=== PATIENT | female | born 1990 | race Caucasian/White ===

== ENCOUNTER 2018-04-07 17:36 | Emergency (ER) | payer OTHER ==
--- NOTE | 2018-04-07 20:08 | RAD ---
CHEST ONE VIEW: HISTORY: A 28-year-old female with a history of chest injury following a trip and fall. The patient passed ou t. Possible aspiration. FINDINGS: Heart size is normal. Lungs are clear. No pneumonia, edema, or pleural effusion. IMPRESSION: No active intrathoracic disease. POS: [facility]
[2018-04-07 20:10] LABS: #Eosinphils 0.2 thou/uL (0.0-0.7); #Monocytes 0.5 thou/uL (0.11-0.59); #Neutrophils 4.6 thou/uL (1.40-6.50); %Basophils 0.6 % (0.0-1.0); %Lymphocytes 26.8 % (21.0-51.0); %Monocytes 7.2 % (0.0-10.0); %Neutrophils 62.4 % (42.0-75.0); Hemoglobin 13.7 g/dL (12.0-16.0); Mean Corpuscular HGB CONC 32.7 g/dL (32.0-36.0); Mean Corpuscular Hemoglobin 31.4 pg (27.0-31.0); Mean Corpuscular Volume 95.8 fL (78.0-98.0); Mean Platelet Volume 7.9 fL (7.4-10.4); Platelet Count 224 thou/uL (130-400); RBC Distribution Width 11.2 % (11.5-14.5); Red Blood Cell (RBC) Count 4.37 mill/uL (4.20-5.40); White Blood Cell (WBC) Count 7.4 thou/uL (4.8-10.8)
[2018-04-07 20:37] LABS: ALT (SGPT) 11 U/L (8-55); AST (SGOT) 15 U/L (5-34); Albumin 4.1 g/dL (3.5-5.0); Alkaline Phosphatase 98 U/L (40-150); Anion Gap 11 mmol/L (10-20); BUN (Urea Nitrogen) 10 mg/dL (7.0-18.7); Bilirubin, Total 0.3 mg/dL (0.2-1.2); Calc. Creatinine Clearance 0 mL/min (70-130); Calcium 9.4 mg/dL (7.8-10.44); Carbon Dioxide 25 mmol/L (22-29); Chloride 107 mmol/L (98-107); Estimated GFR-MDRD 82; Globulin 3.2 g/dL (2.4-3.5); Glucose 85 mg/dL (70-105); Potassium 3.9 mmol/L (3.5-5.1); Protein, Total 7.3 g/dL (6.0-8.3); Sodium 139 mmol/L (136-145)
== END 2018-04-07 22:10 | disposition home or self-care (01) ==
LOC: ERS 17:36
DX: T17.990A Other foreign object in respiratory tract, part unspecified in causing asphyxiation, initial encounter (principal); W01.190A Fall on same level from slipping, tripping and stumbling with subsequent striking against furniture, initial encounter
CPT/HCPCS: 36415; 71045; 80053; 85025

== ENCOUNTER 2020-05-13 17:18 | Inpatient (IN) | payer OTHER ==
[~2020-05-13 17:18] MED LIST: Bupivacaine 0.25% HCL 30 ML VIAL ONE; ePHEDrine 50 MG/ML VIAL ONE
[2020-05-13 17:50] VITALS: BMI 35.2
[2020-05-13] MEDS ORDERED: hydrALAZINE 20 MG/ML VIAL SLOW IVP PRN ×2 (18:06→20:01)
[2020-05-13] MEDS: Lactated Ringer's 1,000 ML IV SCH ×2 (19:55→21:55)
[2020-05-13] MEDS ORDERED: Butorphanol Tartrate 1 MG/ML VIAL ONE (20:01)
[2020-05-13] MEDS ORDERED: Butorphanol Tartrate 1 MG/ML VIAL SLOW IVP PRN (20:01)
[2020-05-13] MEDS ORDERED: Lidocaine 1% (PF) 30 ML VIAL SC PRN (20:01)
[2020-05-13] MEDS ORDERED: Docusate 100 MG CAP PO PRN (20:01)
[2020-05-13] MEDS ORDERED: HYDROcodone/Acetaminophen 5/325 mg Tablet PO PRN ×2 (20:01)
[2020-05-13] MEDS ORDERED: Ibuprofen 800 MG TAB PO PRN (20:01)
[2020-05-13] MEDS ORDERED: Carboprost 250 MCG/ML AMP IM PRN (20:01)
[2020-05-13] MEDS ORDERED: Promethazine HCl 25 MG/ML VIAL IM PRN ×2 (20:01→23:15)
[2020-05-13] MEDS ORDERED: Acetaminophen 500 MG TAB PO PRN (20:01)
[2020-05-13] MEDS ORDERED: Diphenoxylate HCl/Atropine Tablet PO PRN ×2 (20:01)
[2020-05-13] MEDS ORDERED: Zolpidem Tartrate 5 MG TAB PO PRN (20:01)
[2020-05-13] MEDS ORDERED: Methylergonovine 0.2 MG/ML VIAL IM PRN (20:01)
[2020-05-13] MEDS ORDERED: Penicillin G Potassium 5 MILL.UNITS in Sodium Chloride 0.9% 100 ML IVPB SCH (20:15)
[2020-05-13] MEDS ORDERED: NS w/ Oxytocin 30 units 500 ML IVPB PRN (20:18)
[2020-05-13] MEDS ORDERED: NS w/ Oxytocin 30 units 500 ML IVPB SCH ×2 (20:30→20:45)
[2020-05-13 20:58] LABS: Amnisure Test RUPTURE DETECTED (No Rupture)
[2020-05-13 20:59] LABS: Amnisure Internal Control QC ACCEPTABLE (ACCEPTABLE)
[2020-05-13] MEDS: Ondansetron PF 4 MG/2 ML Vial IVP PRN (21:11)
[2020-05-13 21:17] LABS: Hemoglobin 13.7 g/dL (12.0-16.0); Mean Corpuscular HGB CONC 32.5 g/dL (32.0-36.0); Mean Corpuscular Hemoglobin 31.5 pg (27.0-31.0); Mean Corpuscular Volume 96.8 fL (78.0-98.0); Mean Platelet Volume 9.2 fL (7.4-10.4); Platelet Count 188 thou/uL (130-400); RBC Distribution Width 12.5 % (11.5-14.5); Red Blood Cell (RBC) Count 4.35 mill/uL (4.20-5.40); White Blood Cell (WBC) Count 11.7 thou/uL (4.8-10.8)
[2020-05-13] MEDS ORDERED: Fentanyl 4 mcg/Bup 0.1% Cadd 100 ML ONE (21:28)
[2020-05-13 21:53] LABS: Syphilis Antibody Nonreactive (Nonreactive); Syphilis Antibody Index 0.04 S/CO (<1.00 Non-Reactive)
[2020-05-13] MEDS: ePHEDrine 50 MG/ML VIAL SLOW IVP PRN (22:58)
[2020-05-13] MEDS ORDERED: Naloxone HCl 0.4 mg/ml Vial IVP PRN ×2 (23:15)
[2020-05-13] MEDS ORDERED: Ondansetron PF 4 MG/2 ML Vial IVP PRN (23:15)
[2020-05-13] MEDS ORDERED: Fentanyl 4 mcg/Bupivacaine 0.1% Cassette 100 ML EPIDURAL SCH (23:15)
[2020-05-13] MEDS ORDERED: Lactated Ringer's 500 ML IV PRN (23:15)
[2020-05-13] MEDS ORDERED: diphenhydrAMINE 50 MG/ML VIAL IVP PRN (23:15)
[2020-05-13] MEDS ORDERED: Communication Order-Pharmacy FS SCH (23:15)
[2020-05-13] MEDS ORDERED: Acetaminophen 325 MG TAB PO PRN (23:15)
[2020-05-13] MEDS ORDERED: PHENYLEPHRINE-NS 100 MCG/ML 10 ML SYRINGE ONE (23:23)
[2020-05-13] MEDS ORDERED: Dexamethasone 4 mg/ml Vial ONE (23:23)
[2020-05-13] MEDS ORDERED: Penicillin G 2.5 MILL.units 2.5 MILL.UNITS in Premix Bag 1 BAG IVPB SCH (23:59)
[2020-05-14] MEDS: Lactated Ringer's 1,000 ML IV SCH ×2 (00:31→11:51)
[2020-05-14] MEDS: Vancomycin 1 GM in Premix Bag 1 BAG IVPB SCH ×2 (00:32→11:51)
[2020-05-14 00:59] LABS: HBSAg Index 0.19 S/CO (0-0.99); Hep B Surf Ag Non-Reactive S/CO (NonReactive)
[2020-05-14] MEDS ORDERED: Fentanyl 4 mcg/Bup 0.1% Cadd 100 ML ONE ×2 (06:30→14:48)
[2020-05-14] MEDS: Ondansetron PF 4 MG/2 ML Vial IVP PRN (09:17)
[2020-05-14] MEDS: ePHEDrine 50 MG/ML VIAL SLOW IVP PRN (14:24)
[2020-05-14] MEDS ORDERED: Misoprostol 200 MCG TAB ONE (15:15)
[2020-05-14] MEDS ORDERED: Ondansetron PF 4 MG/2 ML Vial IVP PRN (16:49)
[2020-05-14] MEDS ORDERED: Misoprostol 200 MCG TAB VAG PRN (16:49)
[2020-05-14] MEDS ORDERED: Bisacodyl 10 MG SUPP PR PRN (16:49)
[2020-05-14] MEDS ORDERED: hydrALAZINE 20 MG/ML VIAL SLOW IVP PRN (16:49)
[2020-05-14] MEDS ORDERED: Benzocaine-Menthol 82.5 ML CAN TOP PRN (16:49)
[2020-05-14] MEDS ORDERED: Milk Of Magnesia 30 ML UDCUP PO PRN (16:49)
[2020-05-14] MEDS ORDERED: Promethazine HCl 25 MG/ML VIAL IM PRN (16:49)
[2020-05-14] MEDS ORDERED: Preparation H Ointment 28 GM TUBE PR PRN (16:49)
[2020-05-14] MEDS ORDERED: Zolpidem Tartrate 5 MG TAB PO PRN (16:49)
[2020-05-14] MEDS ORDERED: diphenhydrAMINE 25 MG CAP PO PRN (16:49)
[2020-05-14] MEDS ORDERED: Methylergonovine 0.2 MG/ML VIAL IM PRN (16:49)
[2020-05-14] MEDS ORDERED: NS / Oxytocin 40 units/1000ml 1,000 ML IV SCH (16:49)
[2020-05-14] MEDS ORDERED: HYDROcodone/Acetaminophen 5/325 mg Tablet PO PRN ×2 (16:49)
[2020-05-14] MEDS ORDERED: Lanolin Ointment 7 GM TUBE TOP PRN (16:49)
[2020-05-14] MEDS: Ferrous Sulfate 325 MG TAB PO SCH (18:14)
[2020-05-14] MEDS: Ibuprofen 800 MG TAB PO SCH (18:38)
[2020-05-14] MEDS: Docusate Calcium (SURFAK) 240 MG CAP PO SCH (20:38)
[2020-05-15] MEDS: Ibuprofen 800 MG TAB PO SCH ×3 (03:10→20:45)
[2020-05-15 07:04] LABS: Hemoglobin 11.2 g/dL (12.0-16.0); Mean Corpuscular HGB CONC 33.4 g/dL (32.0-36.0); Mean Corpuscular Hemoglobin 32.4 pg (27.0-31.0); Mean Corpuscular Volume 97.1 fL (78.0-98.0); Mean Platelet Volume 8.5 fL (7.4-10.4); Platelet Count 145 thou/uL (130-400); RBC Distribution Width 12.6 % (11.5-14.5); Red Blood Cell (RBC) Count 3.45 mill/uL (4.20-5.40); White Blood Cell (WBC) Count 14.4 thou/uL (4.8-10.8)
[2020-05-15] MEDS: Ferrous Sulfate 325 MG TAB PO SCH ×2 (09:07→18:01)
[2020-05-15] MEDS: Prenatal Vitamin 1 TAB PO SCH (09:34)
[2020-05-15] MEDS: Acetaminophen 500 MG TAB PO PRN (09:34)
[2020-05-15] MEDS: Docusate Calcium (SURFAK) 240 MG CAP PO SCH ×2 (09:34→20:45)
[2020-05-15] MEDS ORDERED: Varicella virus, LIVE 0.5 ML VIAL SC ONE (16:49)
[2020-05-15] MEDS ORDERED: Measles/Mumps/Rubella 10 MCG/0.5 ML VIAL SC ONE (16:49)
[2020-05-15] MEDS ORDERED: Adacel (T-DAP) 0.5 ML SYRINGE IM ONE (16:49)
[2020-05-15] MEDS ORDERED: Boostrix 0.5 ML (Tdap) VIAL IM ONE (20:00)
[2020-05-16] MEDS: Acetaminophen 500 MG TAB PO PRN (03:33)
[2020-05-16] MEDS: Ibuprofen 800 MG TAB PO SCH (05:19)
[2020-05-16] MEDS: Ferrous Sulfate 325 MG TAB PO SCH (07:39)
[2020-05-16 08:47] VITALS: BP 115/66; TEMP 98.6
[2020-05-16] MEDS: Prenatal Vitamin 1 TAB PO SCH (09:49)
[2020-05-16] MEDS: Docusate Calcium (SURFAK) 240 MG CAP PO SCH (09:49)
== END 2020-05-16 13:00 | disposition home or self-care (01) | DRG 807 ==
LOC: L&D/OP 17:18 → L&D 20:01 → 3SW 05-14 18:17
PROVIDERS: ADMIT Obstetrics & Gynecology; ATTEND Obstetrics & Gynecology
PROC: 10E0XZZ Delivery of Products of Conception, External Approach (ICD-10-PCS; principal; 2020-05-14)
DX: O34.219 Maternal care for unspecified type scar from previous cesarean delivery (principal); Z37.0 Single live birth; O69.81X0 Labor and delivery complicated by cord around neck, without compression, not applicable or unspecified; Z3A.38 38 weeks gestation of pregnancy
CPT/HCPCS: 36415; 51702; 84112; 85027; 86780; 86850; 86900; 86901; 87340; 90715; 99285; J0595; J1100; J2405; J2540; J2590; J3370; J3490; S0020

== ENCOUNTER 2024-04-19 17:50 | Emergency (ER) | payer BC, SELFPAY ==
[2024-04-19] MEDS ORDERED: methylPREDNISolone Sod Succ/PF 125 MG/2 ML VIAL ONE (18:09)
[2024-04-19] MEDS ORDERED: Ipratropium/Albuterol 3 ML NEB ONE (18:09)
[2024-04-19 18:14] LABS: #Basophils 0.07 10x3/uL (0.0-0.2); %Basophils 1.1 % (0.0-1.0); %Eosinophils 9.6 % (0.0-10.0); %Lymphocytes 22.6 % (21.0-51.0); %Monocytes 8.5 % (0.0-10.0); Hematocrit 40.4 % (36.0-47.0); Hemoglobin 12.7 g/dL (12.0-16.0); Mean Corpuscular HGB CONC 31.4 g/dL (32.0-36.0); Mean Corpuscular Hemoglobin 26.7 pg (27.0-31.0); Mean Corpuscular Volume 85.1 fL (78.0-98.0); Mean Platelet Volume 9.8 fL (7.4-10.4); Platelet Count 319 10x3/uL (130-400); RBC Distribution Width 13.7 % (11.5-14.5); Red Blood Cell (RBC) Count 4.75 mill/uL (4.20-5.40)
[2024-04-19 18:30] LABS: Anion Gap 15 mmol/L (10-20); BUN (Urea Nitrogen) 15 mg/dL (7.0-18.7); Calc. Creatinine Clearance 0 mL/min (70-130); Calcium 9.2 mg/dL (7.8-10.44); Carbon Dioxide 21 mmol/L (22-29); Chloride 110 mmol/L (98-107); Estimated GFR 66; Glucose 88 mg/dL (70-105); Potassium 4.2 mmol/L (3.5-5.1); Sodium 142 mmol/L (136-145)
[2024-04-19 18:31] LABS: ALT (SGPT) 12 U/L (8-55); AST (SGOT) 16 U/L (5-34); Albumin 4.2 g/dL (3.5-5.0); Alkaline Phosphatase 91 U/L (40-110); Bilirubin, Total 0.3 mg/dL (0.2-1.2); Globulin 3.5 g/dL (2.4-3.5); Protein, Total 7.7 g/dL (6.0-8.3)
[2024-04-19 18:35] LABS: Troponin I Less than 0.010 ng/mL (< 0.028)
[2024-04-19 18:44] LABS: BHCG - Serum Negative (NEGATIVE); Pregs Control Background? CLEAR/WHITE (CLR/WHITE); Pregs Control Bar Appear? YES (CONTROL BAR)
== END 2024-04-19 19:47 | disposition home or self-care (01) ==
LOC: ERS 17:50
DX: J20.9 Acute bronchitis, unspecified (principal); Z55.6 Problems related to health literacy
CPT/HCPCS: 71275; 80053; 83605; 83880; 84145; 84484; 84703; 85025; 93005; 96374; J2919; J7620